=== PATIENT | male | born 1980 | race Caucasian/White ===

== ENCOUNTER 2019-03-30 23:30 | Emergency (ER) | payer SELFPAY, OTHER | END 2019-03-31 03:44 | disposition home or self-care (01) | LOC: FTE 23:30 | DX: T15.01XA Foreign body in cornea, right eye, initial encounter (principal); F17.210 Nicotine dependence, cigarettes, uncomplicated; X58.XXXA Exposure to other specified factors, initial encounter; Y92.9 Unspecified place or not applicable | CPT/HCPCS: 65220; 99283-25 ==